=== PATIENT | male | born 1960 | race Caucasian/White ===

== ENCOUNTER 2018-01-16 16:20 | Inpatient (IN) | payer OTHER ==
[~2018-01-16] VITALS: Ht 182.9 cm; Wt 100.2 kg
[~2018-01-16 16:20] MED LIST: AMOXICILLIN500 MG PO; FENOFIBRATE145 MG PO; HYDROCODON-ACE1 EA15 PO; METFORMIN HCL500 MG PO; VASOTEC5 MG PO
[2018-01-16 17:08] LABS: BASOPHILS # (AUTO) 0.1 (0.0-0.1); BASOPHILS % 0.5 % (0.0-1.0); EOSINOPHILS # (AUTO) 0.4 (0.0-0.4); EOSINOPHILS % 3.1 % (0.0-6.0); HEMOGLOBIN 14.2 g/dL (14.0-18.0); LYMPHOCYTES # (AUTO) 2.2 (1.0-3.2); MEAN CORPUSCULAR HGB CONC 35.5 g/dL (31-35); MEAN CORPUSCULAR VOLUME 87.3 fL (81-99); MONOCYTES # (AUTO) 1.1 (0.2-0.8); MONOCYTES % 8.1 % (4.4-11.3); NEUTROPHILS % 71.7 % (38.7-80.0); PLATELET COUNT 200 x10e3/uL (140-360); RED BLOOD COUNT 4.58 x10e6/uL (4.3-5.7); RED CELL DISTRIBUTION WIDTH 13.1 % (11.7-14.4)
[2018-01-16 17:27] LABS: ALANINE AMINOTRANSFERASE 25 IU/L (0-55); ALBUMIN 3.2 g/dL (3.5-5.0); ALBUMIN/GLOBULIN RATIO 0.9 (0.8-2.0); ALKALINE PHOSPHATASE 88 IU/L (40-150); ANION GAP 13.8 mmol/L (8-16); BLOOD UREA NITROGEN 18 mg/dL (7-26); BUN/CREATININE RATIO 15 (6-25); CALCIUM 9.2 mg/dL (8.4-10.2); CARBON DIOXIDE 22 mmol/L (22-29); CHLORIDE 105 mmol/L (98-107); CREATININE, SERUM 1.17 mg/dL (0.72-1.25); EST GLOMERULAR FILTRATION RATE > 60 ML/MIN (60-); GLUCOSE 167 mg/dL (74-118); POTASSIUM 3.8 mmol/L (3.5-5.1); SODIUM 137 mmol/L (136-145)
[2018-01-16] MEDS ORDERED: LIDOCAINE 1% 5ML-MPF INJ ONE (17:30)
[2018-01-16] MEDS ORDERED: ONDANSETRON HCL INJ 2 MG/ML VIAL IV STA (17:31)
[2018-01-16] MEDS ORDERED: HYDROMORPHONE 1MG/1ML INJ IV STA (17:31)
[2018-01-16] MEDS ORDERED: HYDROMORPHONE 1MG/1ML INJ IV PRN (18:45)
[2018-01-16] MEDS ORDERED: ONDANSETRON HCL INJ 2 MG/ML VIAL IV PRN (18:45)
[2018-01-16] MEDS ORDERED: DEXTROSE 50% SYRINGE 50 ML IV PRN (18:45)
--- NOTE | 2018-01-16 19:13 | History and Physical ---
CLINICAL HISTORY: This is a 58-year-old man seen in the emergency room at [facility] because of right groin abscess. This patient apparently has had right groin problems for approximately a week. He noticed it 5 days ago and thinks this appears to have worsened in the past few days. He went to see Dr. Smith today and was very treated with antibiotics but referred to the emergency room where an abscess was found and had to be drained. He is being admitted for intravenous antibiotics. PAST MEDICAL HISTORY: Remarkable for diabetes, hypertension. MEDICATIONS: At home include losartan 100 mg per day, metformin 500 mg p.o. b.i.d. He is taking an unknown medication, presumably fenofibrate for hypertriglyceridemia. PAST SURGERIES: None. FAMILY HISTORY: Father had coronary artery disease, bypass surgery, diabetes, lived to his 80s. Mother had myocardial infarction in her 80s. He has no brothers or sisters. PERSONAL AND SOCIAL HISTORY: He smoked since age 23. Denies drinking. 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 REVIEW OF SYSTEMS: Noncontributory. PHYSICAL EXAMINATION: GENERAL: He is alert, coherent, appears to be comfortable. CARDIOVASCULAR: Jugular veins are not distended. S1 and S2 are regular. There is no appreciable murmur. RESPIRATORY: Clear. ABDOMEN: Soft. Bowel sounds are present. EXTREMITIES: Show no cyanosis, clubbing, edema. The right groin shows drainage and cellulitis into the right scrotum. LABORATORY STUDIES: Electrolytes were normal. Glucose 167 Albumin 3.2. White count of 13,900. IMPRESSION: 1. Right groin abscess drained in the emergency room but may require further drainage with cellulitis radiating to the right scrotum. 2. Diabetes. 3. Hypertension. 4. Hypertriglyceridemia. RECOMMENDATIONS: Intravenous antibiotics, infectious disease consultation, surgical consultation, urology consultation. Job#: [id number] EV cc:FANNIE SMITH MD cc:JACOBO GREGORY MD
[2018-01-16] MEDS: SODIUM CHLORIDE 0.9% 1000ML 1,000 ML IV SCH (19:22)
[2018-01-16] MEDS: HYDROCODONE/APAP 7.5MG-325MG 1 EA TAB PO SCH (19:22)
[2018-01-16] MEDS: INSULIN LISPRO 100 UNIT/1 ML 3ML VIAL SQ SCH (21:00)
[2018-01-16 21:40] VITALS: BP 152/88
[2018-01-16] MEDS: VANCOMYCIN 1GM/NS 250 ML 250 ML IV SCH (22:15)
[2018-01-16 22:47] VITALS: BP 152/88
[2018-01-16] MEDS ORDERED: LOVASTATIN40 MG PO (23:28)
[2018-01-16] MEDS ORDERED: LOSARTAN POTAS100 MG PO (23:28)
[2018-01-17] VITALS (8 sets, daily range): BP systolic 119–145; BP diastolic 71–87
[2018-01-17] MEDS: PIPER-TAZ 3.375 GM 50 ML IV SCH ×4 (00:45→17:32)
[2018-01-17] MEDS: SODIUM CHLORIDE 0.9% 1000ML 1,000 ML IV SCH ×3 (02:43→17:33)
[2018-01-17 04:36] LABS: BASOPHILS # (AUTO) 0.1 (0.0-0.1); BASOPHILS % 0.5 % (0.0-1.0); EOSINOPHILS # (AUTO) 0.5 (0.0-0.4); EOSINOPHILS % 3.9 % (0.0-6.0); HEMATOCRIT 37.6 % (38.2-49.6); LYMPHOCYTES # (AUTO) 2.6 (1.0-3.2); LYMPHOCYTES % 20.9 % (18.0-39.1); MEAN CORPUSCULAR HEMOGLOBIN 30.4 pg (28-32); MEAN CORPUSCULAR HGB CONC 34.6 g/dL (31-35); MEAN CORPUSCULAR VOLUME 87.9 fL (81-99); MONOCYTES % 7.8 % (4.4-11.3); NEUTROPHILS # (AUTO) 8.3 (2.1-6.9); NEUTROPHILS % 66.1 % (38.7-80.0); PLATELET COUNT 206 x10e3/uL (140-360); RED BLOOD COUNT 4.28 x10e6/uL (4.3-5.7); RED CELL DISTRIBUTION WIDTH 13.2 % (11.7-14.4)
[2018-01-17 04:53] LABS: ANION GAP 13.7 mmol/L (8-16); BLOOD UREA NITROGEN 17 mg/dL (7-26); BUN/CREATININE RATIO 17 (6-25); CALCIUM 8.7 mg/dL (8.4-10.2); CARBON DIOXIDE 22 mmol/L (22-29); CHLORIDE 105 mmol/L (98-107); CREATININE, SERUM 1.02 mg/dL (0.72-1.25); EST GLOMERULAR FILTRATION RATE > 60 ML/MIN (60-); GLUCOSE 124 mg/dL (74-118); POTASSIUM 3.7 mmol/L (3.5-5.1); SODIUM 137 mmol/L (136-145)
[2018-01-17] MEDS: HYDROCODONE/APAP 7.5MG-325MG 1 EA TAB PO SCH ×4 (06:14→17:32)
[2018-01-17] MEDS: INSULIN LISPRO 100 UNIT/1 ML 3ML VIAL SQ SCH ×4 (07:30→21:00)
[2018-01-17] MEDS: LOSARTAN POTASSIUM 100 MG TAB PO SCH (08:18)
[2018-01-17] MEDS: VANCOMYCIN 1GM/NS 250 ML 250 ML IV SCH ×2 (08:18→22:54)
[2018-01-17] MEDS: METFORMIN HCL 500 MG TAB PO SCH (08:19)
[2018-01-17] MEDS ORDERED: FENOFIBRATE 145 MG TAB PO SCH (09:00)
--- NOTE | 2018-01-17 17:54 | Consultation ---
DATE OF CONSULTATION: January 17, 2018 ATTENDING PHYSICIAN: Dr. Tyson Bateman. REASON FOR CONSULTATION: Groin infection. Thank you Dr. Bateman for asking me to see this patient. HISTORY: The patient is a 58-year-old man referred for groin infection. He presented to the emergency department with painful right groin boil. He noted a small painful pimple of the right groin about 2 days earlier and applied iodine ointment to it. Unfortunately, the lesion grew bigger and more painful especially when walking. He was evaluated by the primary care provider yesterday and treated with intramuscular injection of antibiotic and sent to the emergency room for further evaluation or management. In the emergency room, he was noted to have temperature of 101.1 degrees Fahrenheit, pulse 95, respiratory rate 20, blood pressure 129/91. Initial laboratory studies showed blood leukocyte count of 13,910 with 71.7% neutrophils and blood glucose 167. Patient underwent incision and drainage in the emergency room. PAST MEDICAL HISTORY: Diabetes mellitus type 2, hypertension and hypertriglyceridemia. PAST SURGICAL HISTORY: I and D of prior abscesses. ALLERGIES: FENOFIBRATE. MEDICATIONS: The current antibiotics are Zosyn 3.375 grams IV piggyback q.6 hours and vancomycin 1 gram IV piggyback q.12 hours. FAMILY HISTORY: The parents had coronary artery disease. SOCIAL HISTORY: He smoked a pack of cigarettes a day and has been doing so for many years. He has alcohol use. REVIEW OF SYSTEMS: As per history of present illness. The fever subsided. He denies cough, shortness of breath, nausea, vomiting, diarrhea, dysuria and abdominal pain. PHYSICAL EXAMINATION GENERAL: No acute distress. VITAL SIGNS: T-max 101.1, TC 97.2, pulse 54, respiratory rate 18, blood pressure 119/71. Weight 223 pounds. HEENT: Normocephalic. There is no icterus or injection of conjunctivae. There is no ear or nasal discharge. Moist oral mucosa. No pharyngeal erythema or exudate. NECK: Supple. No lymphadenopathy or meningismus. LUNGS: Clear to auscultation bilaterally. HEART: Normal S1 and S2. Bradycardia. ABDOMEN: Normal bowel sounds in all quadrants. Soft and nontender. There is swelling, induration and erythema of the right groin with incision packed with drain. There is tenderness to palpation on the right inguinal area. EXTREMITIES: There is no edema, clubbing or cyanosis. The dorsalis pedis and posterior tibial pulses are palpable in both feet. SKIN: Right groin lesion as described above. FUR BUYER: Awake, alert and oriented to person, place and time. There is normal sensation on monofilament examination of the feet bilaterally. Nonfocal. LABORATORY AND DIAGNOSTICS: WBC 12,560, hemoglobin 13, platelets 206,000, neutrophils 66.1, lymph 20.9, monos 7.8, eosinophil 3.9 and basophils 0.5. BUN 17, creatinine 1.02, blood glucose 139. Blood culture is pending: Abscess culture cannot be located. IMPRESSION 1. Right groin abscess, status post incision and drainage. 2. Diabetes mellitus type 2 control. 3. Tobacco use disorder. PLAN 1. Check wound culture as well as blood culture results. 2. Continue current antibiotics. 3. Smoking cessation counseling has been provided to the patient. Currently, he declined pharmacologic intervention. Job#: [id number] BRIANNA
[2018-01-18] VITALS (7 sets, daily range): BP systolic 116–145; BP diastolic 65–88
[2018-01-18] MEDS: PIPER-TAZ 3.375 GM 50 ML IV SCH ×5 (00:37→23:15)
[2018-01-18] MEDS: HYDROCODONE/APAP 7.5MG-325MG 1 EA TAB PO SCH ×4 (05:16→18:00)
[2018-01-18] MEDS: SODIUM CHLORIDE 0.9% 1000ML 1,000 ML IV SCH ×2 (05:16→10:43)
[2018-01-18] MEDS: INSULIN LISPRO 100 UNIT/1 ML 3ML VIAL SQ SCH ×5 (07:30→20:43)
[2018-01-18] MEDS: VANCOMYCIN 1GM/NS 250 ML 250 ML IV SCH ×2 (09:15→20:43)
[2018-01-18] MEDS: LOSARTAN POTASSIUM 100 MG TAB PO SCH (09:15)
[2018-01-18] MEDS: METFORMIN HCL 500 MG TAB PO SCH (09:15)
[2018-01-19 00:17] VITALS: BP 127/69
[2018-01-19] MEDS: SODIUM CHLORIDE 0.9% 1000ML 1,000 ML IV SCH ×3 (01:53→10:43)
[2018-01-19 04:47] VITALS: BP 127/69
[2018-01-19 05:14] VITALS: BP 153/77
[2018-01-19] MEDS: PIPER-TAZ 3.375 GM 50 ML IV SCH ×2 (05:55→12:23)
[2018-01-19] MEDS: HYDROCODONE/APAP 7.5MG-325MG 1 EA TAB PO SCH ×3 (05:55→12:00)
[2018-01-19] MEDS: INSULIN LISPRO 100 UNIT/1 ML 3ML VIAL SQ SCH ×3 (07:30→15:45)
[2018-01-19 08:41] VITALS: BP 145/82
[2018-01-19] MEDS: METFORMIN HCL 500 MG TAB PO SCH (09:37)
[2018-01-19] MEDS: VANCOMYCIN 1GM/NS 250 ML 250 ML IV SCH (09:37)
[2018-01-19] MEDS: LOSARTAN POTASSIUM 100 MG TAB PO SCH (09:37)
[2018-01-19 11:34] VITALS: BP 165/91
[2018-01-19 12:00] VITALS: BP 165/91
[2018-01-19] MEDS ORDERED: AMOX TR-K CLV1 EAC2 PO (16:08)
[2018-01-20] MEDS ORDERED: METFORMIN HCL 500 MG TAB PO SCH (08:00)
--- NOTE | 2018-01-20 10:16 | Discharge Summary ---
DISCHARGE MEDICATION 1. Amoxicillin/potassium 75 mg/125 mg p.o. b.i.d. for 10 days. 2. Losartan 100 mg p.o. daily. 3. Atorvastatin 40 mg daily. 4. Metformin 50 mg p.o. daily. CLINICAL HISTORY: This is a 58-year-old man admitted via the emergency room because of right groin abscess. Please refer to my previous dictation concerning details of current illness, past medical history, personal and social history, family history, review of systems, physical examination, and initial laboratory studies. HOSPITAL COURSE: The patient abscess was immediately opened and drained. He was admitted for intravenous antibiotics. Was seen in consultation by Dr. Ravin Champion, general surgery and Dr. Joshua Florez, infectious disease. He did extremely well and had no complications. Anxious to be discharged. His cultures finally returned showing it was pansensitive. The patient is discharged on amoxicillin TR-K CLV 875 per 125 mg p.o. b.i.d. for 7-10 days. Other medications are the same. DISCHARGE DIAGNOSES 1. Right groin abscess successfully treated with intravenous and oral antibiotics with cultures showing Proteus pansensitive. 2. Diabetes. 3. Hypertension. 4. Hypertriglyceridemia. SANTI RIVAS MD Job#: [id number] RI cc:MD RAVIN NEIL MD MAURICE E. AKUCHIE, MD
== END 2018-01-19 17:45 | disposition home or self-care (01) | DRG 989 ==
LOC: ER 16:20 → ERHOLD 19:27 → IMCU 21:36 → OBSVTOIN 01-18 10:52 → MED/SURG3 01-18 17:27
PROVIDERS: ADMIT Internal Medicine Cardiovascular Disease; ATTEND Internal Medicine Cardiovascular Disease
PROC: 0Y950ZX Drainage of Right Inguinal Region, Open Approach, Diagnostic (ICD-10-PCS; principal; 2018-01-16)
DX: L02.214 Cutaneous abscess of groin (principal); N49.8 Inflammatory disorders of other specified male genital organs; E11.9 Type 2 diabetes mellitus without complications; I10 Essential (primary) hypertension; E78.1 Pure hyperglyceridemia; Z72.0 Tobacco use; B96.4 Proteus (mirabilis) (morganii) as the cause of diseases classified elsewhere
CPT/HCPCS: 36415; 80048; 80053; 82948; 83605; 85025; 87040; 87071; 87186; 87205; 99284; G0378; J1170; J2405; J2543; J3370; J7030

== ENCOUNTER 2019-11-01 13:51 | Inpatient (IN) | payer OTHER ==
[~2019-11-01] VITALS: Ht 182.9 cm; Wt 107.5 kg
[~2019-11-01 13:51] MED LIST changes: +AMOX TR-K CLV1 EAC2 PO; +LOSARTAN POTAS100 MG PO; +LOVASTATIN40 MG PO
--- OUTSIDE RECORDS SUMMARY | 2019-11-01 13:53 | XMS REPORT ---
Author Author [facility] t Organization [facility] Address Unknown Phone Unavailable Care Team Providers Care Fashion Marketer Name Role Phone QUYNH THEODORE, [place] GRECO PP Payers Payer Name Policy Type Policy Number Effective Date Expiration D ate [facility] [id number] 2015 00:00:00 Problems This patient has no known problems. Allergies, Adverse Reactions, Alerts Allergy Name Allergy Type Status Severity Reaction(s) Onset Date Inacti ve Date Treating Clinician Comments Fenofibrate Propensity to adverse reactions Active Moderate coretta h 2018-01-17 00:00:00 Medications Ordered Medication Name Filled Medication Name Start Date Stop Da te Current Medication? Ordering Clinician Indication Dosage Frequency Signature (SIG) Comments Components Amoxicillin/Potassium Clav (Amox Tr-K Clv 875-125 Mg T ab) 1 Each Tablet Amoxicillin/Potassium Clav (Amox Tr-K Clv 875-125 Mg Tab) 1 Each Tablet 2018-01-19 00:00:00 2018-01-29 00:00:00 No Joshua Florez Md 1 Twice A Day Losartan Potassium 100 Mg Tablet Losartan Potassium 100 Mg Tablet Yes 100 Daily Lovastatin 40 Mg Tablet Lovastatin 40 Mg Tablet Yes 40 Bedtime Metformin Hcl 500 Mg Tablet Metformin Hcl 500 Mg Tablet Yes 500 Daily Amoxicillin 500 Mg Capsule, 500 Mg Oral Amoxicillin 500 Mg C apsule, 500 Mg Oral 2018-01-16 00:00:00 No 500 Four Times D aily Enalapril Maleate (Vasotec) 5 Mg Tab, 5 Mg Oral Enalap ril Maleate (Vasotec) 5 Mg Tab, 5 Mg Oral 2018-01-16 00:00:00 No 5 Sylvie ly Fenofibrate Nanocrystallized (Fenofibrate) 145 Mg Tabl et, 145 Mg Oral Fenofibrate Nanocrystallized (Fenofibrate) 145 Mg Tablet, 145 Mg Oral 2018-01-16 00:00:00 No 145 Bedtime Hydrocodone Bit/Acetaminophen (Hydrocodo n-Acetaminoph 7.5-300) 1 Each Tablet, 7.5 Mg Oral Hydrocodone Bit/Acetaminophen (Hydrocodo n-Acetaminoph 7.5-300) 1 Each Tablet, 7.5 Mg Oral 2018-01-16 00:00:00 No 7.5 Every 6HRS Encounters Start Date/Time End Date/Time [facility] 2018-01-18 10:52:00 2018-01-19 17:45:00 Discharged Inpatient [facility] [id number] Results Test Description Test Time Test Comments Text Results Atomic Results Result Comments Blood Culture 2018-01-19 17:03:00 Blood Culture (test code = 25381160) NO GROWTH AFTER 72 HOURS Bedside [id number] 16:53:00* Test Item Value Reference Range Comments Bedside Glucose (test code = 92583-2) 97 70-120 Meter ID: [id number] 06:22:00* Test Item Value Reference Range Comments Wound Culture (test code = 6462-6) Organism: PROTEUS MIRABILIS Sodium [id number] 04:54:00* Test Item Value Reference Range Comments Sodium Level (test code = 2951-2) 137 136-145 Potassium [id number] 04:54:00* Test Item Value Reference Range Comments Potassium Level (test code = 2823-3) 3.7 3.5-5.1 Chloride [id number] 04:54:00* Test Item Value Reference Range Comments Chloride Level (test code = 5-0) 105 98-107 Carbon Dioxide Hozlc5482-25-22 04:54:00* Test Item Value Reference Range Comments Carbon Dioxide Level (test code = 2027-) 22 22-29 Anion [id number] 04:54:00* Test Item Value Reference Range Comments Anion Gap (test code = 06221-0) 13.7 8-16 Blood Urea Ykoolcwv9432-83-90 04:54:00* Test Item Value Reference Range Comments Blood Urea Nitrogen (test code = 3094-0) 17 7-26 Nxaticjsap6564-68-05 04:54:00* Test Item Value Reference Range Comments Creatinine (test code = 2160-0) 1.02 0.72-1.25 BUN/Creatinine Jvull1696-97-92 04:54:00* Test Item Value Reference Range Comments BUN/Creatinine Ratio (test code = 3097-3) 17 6-25 Estimat Glomerular Filtration Qjlc2977-51-60 04:54:00* Test Item Value Reference Range Comments Estimat Glomerular Filtration Rate (test code = 92915-9) 60- >60 Ranges were taken from the National Kidney Disease Education Program and the [facility] Kidney Foundation literature.Reference ranges:60 or greater: Gdfegs97-99 ( for 3 consecutive months): Chronic kidney disease 15 or less: Kidney failure Glucose Serdr8090-35-52 04:54:00* Test Item Value Reference Range Comments Glucose Level (test code = LDK5030) 124 74-118 Calcium Kyghf7044-13-03 04:54:00* Test Item Value Reference Range Comments Calcium Level (test code = 83646-3) 8.7 8.4-10.2 White Blood Iqqqp9192-16-75 04:40:00* Test Item Value Reference Range Comments White Blood Count (test code = 6690-2) 12.56 4.8-10.8 Red Blood Zpgob3641-39-48 04:40:00* Test Item Value Reference Range Comments Red Blood Count (test code = 789-8) 4.28 4.3-5.7 Uvxjtlnvcf0565-06-36 04:40:00* Test Item Value Reference Range Comments Hemoglobin (test code = 36177-4) 13.0 14.0-18.0 Ixrmoloyij7115-39-71 04:40:00* Test Item Value Reference Range Comments Hematocrit (test code = 4544-3) 37.6 38.2-49.6 Mean Corpuscular Yabuzj9267-47-07 04:40:00* Test Item Value Reference Range Comments Mean Corpuscular Volume (test code = 787-2) 87.9 81-9 9 Mean Corpuscular Qtlldhhfub6563-92-28 04:40:00* Test Item Value Reference Range Comments Mean Corpuscular Hemoglobin (test code = 785-6) 30.4 28-32 Mean Corpuscular Hemoglobin Tilckou4894-37-14 04:40:00* Test Item Value Reference Range Comments Mean Corpuscular Hemoglobin Concent (test code = 786-4) 34.6 31-35 Red Cell Distribution Gwijs2870-55-53 04:40:00* Test Item Value Reference Range Comments Red Cell Distribution Width (test code = 67064-3) 13.2 11.7-14.4 Platelet Nxaag9409-67-82 04:40:00* Test Item Value Reference Range Comments Platelet Count (test code = 777-3) 206 140-360 Neutrophils (%) (Auto)2018-01-17 04:40:00* Test Item Value Reference Range Comments Neutrophils (%) (Auto) (test code = 15706-2) 66.1 38. 7-80.0 Lymphocytes (%) (Auto)2018-01-17 04:40:00* Test Item Value Reference Range Comments Lymphocytes (%) (Auto) (test code = 736-9) 20.9 18.0- 39.1 Monocytes (%) (Auto)2018-01-17 04:40:00* Test Item Value Reference Range Comments Monocytes (%) (Auto) (test code = 5905-5) 7.8 4.4-11 .3 Eosinophils (%) (Auto)2018-01-17 04:40:00* Test Item Value Reference Range Comments Eosinophils (%) (Auto) (test code = 713-8) 3.9 0.0-6 .0 Basophils (%) (Auto)2018-01-17 04:40:00* Test Item Value Reference Range Comments Basophils (%) (Auto) (test code = 706-2) 0.5 0.0-1.0 IM GRANULOCYTES %2018-01-17 04:40:00* Test Item Value Reference Range Comments IM GRANULOCYTES % (test code = IM GRANULOCYTES %) 0.8 0.0-1.0 Neutrophils # (Auto)2018-01-17 04:40:00* Test Item Value Reference Range Comments Neutrophils # (Auto) (test code = 751-8) 8.3 2.1-6.9 Lymphocytes # (Auto)2018-01-17 04:40:00* Test Item Value Reference Range Comments Lymphocytes # (Auto) (test code = 67273-9) 2.6 1.0-3 .2 Monocytes # (Auto)2018-01-17 04:40:00* Test Item Value Reference Range Comments Monocytes # (Auto) (test code = 742-7) 1.0 0.2-0.8 Eosinophils # (Auto)2018-01-17 04:40:00* Test Item Value Reference Range Comments Eosinophils # (Auto) (test code = 711-2) 0.5 0.0-0.4 Basophils # (Auto)2018-01-17 04:40:00* Test Item Value Reference Range Comments Basophils # (Auto) (test code = 704-7) 0.1 0.0-0.1 Absolute Immature Granulocyte (xvog0489-09-03 04:40:00* Test Item Value Reference Range Comments Absolute Immature Granulocyte (auto (stan t code = Absolute Immature Granulocyte (auto) 0.10 0-0.1 Total Skavjgxta0497-69-29 17:28:00* Test Item Value Reference Range Comments Total Bilirubin (test code = 1975-2) 0.5 0.2-1.2 Aspartate Amino Transf (AST/SGOT)2018-01-16 17:28:00* Test Item Value Reference Range Comments Aspartate Amino Transf (AST/SGOT) (test code = Aspartate Amino Transf (AST/SGOT)) 17 5-34 Alanine Aminotransferase (ALT/SGPT)2018-01-16 17:28:00* Test Item Value Reference Range Comments Alanine Aminotransferase (ALT/SGPT) (test code = 1742-6) 25 0-55 Total Hjteazh7555-80-69 17:28:00* Test Item Value Reference Range Comments Total Protein (test code = 2885-2) 6.8 6.5-8.1 Mfjljdc9357-60-70 17:28:00* Test Item Value Reference Range Comments Albumin (test code = 1751-7) 3.2 3.5-5.0 Hbukbqvs0102-74-31 17:28:00* Test Item Value Reference Range Comments Globulin (test code = 53091-2) 3.6 2.3-3.5 Albumin/Globulin Fhjpt7055-07-34 17:28:00* Test Item Value Reference Range Comments Albumin/Globulin Ratio (test code = 1759-0) 0.9 0.8- 2.0 Alkaline Tyqueexkoop8239-90-20 17:28:00* Test Item Value Reference Range Comments Alkaline Phosphatase (test code = 6768-6) 88 40-150 Lactic Acid Ntwrm7940-96-96 17:23:00* Test Item Value Reference Range Comments Lactic Acid Level (test code = Lactic Acid Level) 9.1 4.5-19.8
[2019-11-01] MEDS ORDERED: ASPIRIN 81 MG CHEW TAB PO ONE ×2 (14:00→14:15)
[2019-11-01 14:11] LABS: BASOPHILS # (AUTO) 0.1 (0.0-0.1); BASOPHILS % 0.6 % (0.0-1.0); EOSINOPHILS # (AUTO) 0.3 (0.0-0.4); EOSINOPHILS % 2.1 % (0.0-6.0); HEMATOCRIT 43.3 % (38.2-49.6); HEMOGLOBIN 15.1 g/dL (14.0-18.0); LYMPHOCYTES # (AUTO) 4.6 (1.0-3.2); LYMPHOCYTES % 33.2 % (18.0-39.1); MEAN CORPUSCULAR HGB CONC 34.9 g/dL (31-35); MEAN CORPUSCULAR VOLUME 88.9 fL (81-99); MONOCYTES # (AUTO) 0.9 (0.2-0.8); MONOCYTES % 6.2 % (4.4-11.3); NEUTROPHILS # (AUTO) 7.8 (2.1-6.9); NEUTROPHILS % 55.9 % (38.7-80.0); PLATELET COUNT 236 x10e3/uL (140-360); RED BLOOD COUNT 4.87 x10e6/uL (4.3-5.7); RED CELL DISTRIBUTION WIDTH 13.4 % (11.7-14.4)
[2019-11-01 14:21] LABS: INR 0.98; PARTIAL THROMBOPLASTIN TIME 32.8 seconds (23.8-35.5); PROTHROMBIN TIME 13.6 seconds (11.9-14.5)
[2019-11-01 14:29] LABS: ALANINE AMINOTRANSFERASE 33 IU/L (0-55); ALBUMIN 3.9 g/dL (3.5-5.0); ALBUMIN/GLOBULIN RATIO 1.4 (0.8-2.0); ALKALINE PHOSPHATASE 79 IU/L (40-150); ANION GAP 13.1 mmol/L (8-16); BLOOD UREA NITROGEN 31 mg/dL (7-26); BUN/CREATININE RATIO 27 (6-25); CALCIUM 9.2 mg/dL (8.4-10.2); CARBON DIOXIDE 22 mmol/L (22-29); CHLORIDE 108 mmol/L (98-107); CREATINE KINASE 194 IU/L (30-200); CREATININE, SERUM 1.15 mg/dL (0.72-1.25); EST GLOMERULAR FILTRATION RATE > 60 ML/MIN (60-); GLUCOSE 167 mg/dL (74-118); LIPASE 37 U/L (8-78); POTASSIUM 4.1 mmol/L (3.5-5.1); SODIUM 139 mmol/L (136-145)
--- NOTE | 2019-11-01 15:39 | Diagnostic Imaging Report ---
X-ray chest AP portable Comparison: None History: Chest pain for 2 days Findings: AP lordotic view. Central airways unremarkable. Heart size normal. Atherosclerotic aorta without ectasia. The mediastinal contour is unremarkable. No pleural effusion. No pneumothorax. Lung cramer are unremarkable. Visualized skeletal structures show degenerative changes. Upper abdomen and extrathoracic soft tissues unremarkable. Impression: No acute cardiopulmonary disease. Signed by: Madi Aguilera MD on 11/01/2019 3:35 PM
--- NOTE | 2019-11-01 15:50 | NUR ---
received to rm in stable condition, aaox3 no distress noted, denies chest pain at this time, r ac 20g no ss of infiltration noted, updated on poc voiced understanding, no other co voiced call light in reach will continue to monitor
[2019-11-01 16:26] VITALS: BP 140/91
[2019-11-01 16:31] VITALS: BP 140/91
--- NOTE | 2019-11-01 16:37 | NUR ---
notified Dr. Adhikari re: admit, states will round soon
[2019-11-01] MEDS ORDERED: METOPROLOL TARTRATE 25 MG TAB PO SCH (18:45)
[2019-11-01 19:00] LABS: CREATINE KINASE MB 6.5 ng/mL (0-5.0)
[2019-11-01] MEDS ORDERED: DEXTROSE 50% SYRINGE 50 ML IV PRN (19:00)
[2019-11-01 20:00] VITALS: BP 141/70
[2019-11-01] MEDS: ENOXAPARIN SODIUM INJ 100 MG/ML SYR SC SCH (20:00)
[2019-11-01] MEDS: METOPROLOL TARTRATE 25 MG TAB PO SCH (20:04)
[2019-11-01] MEDS: INSULIN REGULAR, HUMAN 100 UNIT/1 ML 3ML VIAL SQ SCH (20:05)
--- NOTE | 2019-11-01 20:17 | History and Physical ---
CHIEF COMPLAINT: Chest pain. HISTORY OF PRESENT ILLNESS: A 59-year-old gentleman who was seen by his primary care physician, Dr. Smith at his office early in the morning for evaluation of chest pain, which has been localized in the substernal area, and the pain has been presented intermittently during the last 2 days or so. The patient denies nausea. No vomiting. No diaphoresis. No shortness of breath. No fever. No chills. The patient was advised hospitalization in view of ongoing chest pain and did have EKG performed and was told to have some abnormalities. The patient was quite comfortable at the time of my evaluation. PAST MEDICAL HISTORY: He has a history of diabetes mellitus, hypertension, and hyperlipidemia. Denies myocardial infarction. No CVA. FAMILY HISTORY: Family history of CVA and coronary artery disease. SOCIAL HISTORY: History of smoking. No alcohol abuse. ALLERGIES: ALLERGY TO FENOFIBRATE. MEDICATIONS: At the time of admission, list of medications reviewed. REVIEW OF SYSTEMS: CONSTITUTIONAL: No fever. No chills. CARDIOVASCULAR: See present history, complaints of chest pain. No palpitations. No swelling in the legs. No blackout spells. RESPIRATORY: No cough. No hemoptysis. No shortness of breath. GI: No nausea, vomiting, or diarrhea. No hematemesis or melena. GENITOURINARY: No dysuria, hematuria, or frequency. NEUROLOGIC: No focal weakness. PHYSICAL EXAMINATION: GENERAL: Revealed the patient is alert and oriented to person, time, and place. The patient was in no distress at the time of my evaluation. VITAL SIGNS: At the time of the arrival to the ER department, blood pressure 145/91, heart rate 83, respirations 18, temperature 98.4, O2 saturation 98% on room air. HEENT: Head is normocephalic and atraumatic. Extraocular movements are intact. NECK: Supple. No JVD. Thyroid gland was not enlarged. LUNGS: Clear to auscultation. HEART: Regular rate and rhythm. No murmurs, rubs, or gallops. ABDOMEN: Soft, nontender. Bowel sounds are normal. EXTREMITIES: No edema. NEUROLOGIC: Alert and oriented x3. No focal weakness. IMAGING: EKG revealed no acute ischemia, rate 74, normal P waves, normal QRS complex, normal axis, normal QT. ST depression noted in leads III and aVF. LABORATORY DATA: CBC was normal except white blood cell count 13.98. Basic metabolic profile revealed glucose 167, BUN 31. Cardiac enzymes so far negative. ASSESSMENT: 1. Chest pain-rule out acute coronary syndrome. 2. History of hypertension. 3. History of hyperlipidemia. 4. Diabetes mellitus type 2. PLAN OF CARE: Serial cardiac enzymes and consult Cardiology. Beta blockers Lovenox Aspirin Reconcile home medications. MD BASILIA Rebolledo/MELIDA /[id number] MTDD
[2019-11-01 20:19] VITALS: BP 141/70
[2019-11-01 21:22] LABS: EOSINOPHILS % (MANUAL) 1 % (0-7); LYMPHOCYTES % (MANUAL) 30 % (19-48); MONOCYTES % (MANUAL) 5 % (3.4-9.0); NEUTROPHILS % (MANUAL) 51 % (40-74)
[2019-11-01 21:23] LABS: ANISOCYTOSIS SLIGHT; PLATELET ESTIMATE ADEQUATE; PLATELET MORPHOLOGY COMMENT NORMAL; POIKILOCYTOSIS SLIGHT; RBC MORPHOLOGY COMMENT NORMAL
[2019-11-01 23:40] LABS: CREATINE KINASE MB 5.5 ng/mL (0-5.0)
[2019-11-02] VITALS (8 sets, daily range): BP systolic 126–157; BP diastolic 78–86
[2019-11-02 03:10] LABS: CHOLESTEROL 161 MD/DL (0-199); HDL CHOLESTEROL 27 MG/DL (40-60); TRIGLYCERIDES 456 MG/DL (0-149)
[2019-11-02 03:20] LABS: CREATINE KINASE MB 4.6 ng/mL (0-5.0)
--- NOTE | 2019-11-02 07:00 | NUR ---
BEDSIDE SHIFT REPORT RECEIVED FROM PM NURSE; PT AMBULATING TO BR, IN STABLE CONDITION. WILL CONTINUE TO MONITOR.
[2019-11-02] MEDS: INSULIN REGULAR, HUMAN 100 UNIT/1 ML 3ML VIAL SQ SCH ×4 (07:30→20:34)
[2019-11-02] MEDS: ASPIRIN 81 MG ENTERIC COATED PO SCH (09:14)
[2019-11-02] MEDS: ENOXAPARIN SODIUM INJ 100 MG/ML SYR SC SCH (09:15)
[2019-11-02] MEDS: METOPROLOL TARTRATE 25 MG TAB PO SCH ×2 (09:15→17:23)
--- NOTE | 2019-11-02 09:30 | NUR ---
ASSESSMENT: Spiritual concern Pt worried concerning illness. Pt states he is waiting for tests to determine the source of his illness. Intervention: Provided hospitality and empathic listening. Facilitated illness review. Provided prayer. Outcome: Pt expressed appreciation for visit. Will follow as able. MISAEL ALMAZAN Set Decorator Spiritual Care Department O: [phone]
--- NOTE | 2019-11-02 11:59 | Progress Note ---
DATE: 11/02/2019 Cardiology Consultation CONSULTING PHYSICIAN: Ochoa Gallegos MD, interventional Cardiology. REASON FOR CONSULTATION: Chest pain. HISTORY OF PRESENT ILLNESS: Mr. 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 He presents to [facility] with complaints of chest discomfort, worse with exertion, particularly ambulation or lifting heavy objects. Symptoms have pattern onset in the last week and have recurred in two days with increasing intensity. He has currently no active chest discomfort. He denies radiation, but does have associated dyspnea. REVIEW OF SYSTEMS: A 12-system review is negative except for as noted above. PAST MEDICAL HISTORY: As per HPI. SOCIAL HISTORY: He is a smoker. Occasional alcohol use. Denies drug use. FAMILY HISTORY: Noncontributory. PHYSICAL EXAMINATION: VITAL SIGNS: Temperature 97.4, heart rate 60, blood pressure 128/81, respiratory rate 17, O2 saturation 97%. BMI is 32.4. GENERAL: No acute distress. Alert. NECK: No JVD. No carotid bruits. CHEST: Clear to auscultation bilaterally. CARDIOVASCULAR: Regular rate and rhythm. Normal S1 and S2. No S3 or S4. No murmurs or rubs. ABDOMEN: Soft. Bowel sounds positive. EXTREMITIES: Trace edema. MEDICATIONS: Cardiovascular medications reviewed: 1. Metoprolol 25 mg every 12 hours. 2. Aspirin 81 mg daily. 3. Lovenox 100 mg subcu q.12 hours. LABORATORY DATA: Studies reviewed. Sodium 139, potassium 4.1, chloride 108, bicarbonate 22. BUN 31, creatinine 1.15, glucose 167. White blood cells 13.9, hemoglobin 15.1, platelets 236. PT 13.6, PTT 22.8, INR 0.98. AST 22, ALT 33, alkaline phosphatase 79, total bilirubin 0.5. ASSESSMENT AND PLAN: A 59-year-old man, presents with rsg-BW-pzawqbldp myocardial infarction, diabetes mellitus type 2, hypertension, dyslipidemia, morbid obesity, mild increase in white count observed, creatinine borderline elevated. RECOMMENDATIONS: 1. IV fluids. 2. Keep n.p.o. for coronary angiography and possible intervention this p.m. Indications, alternatives, risks, and benefits have been discussed for coronary angiography and possible intervention and all questions have been addressed. The patient voices understanding and agrees to proceed. Echocardiogram is ordered and to be done today. We will hold Lovenox in preparation for coronary angiography and add atorvastatin 40 mg at bedtime. Continue rest of cardiovascular medications. Serial cardiac biomarkers have ruled them in for Tjb-WS-yquylwuct myocardial infarction with CK-MB at 5. I thank Dr. Adhikari and Dr. Morse for the opportunity to participate in the care of Mr. Guerra. Ochoa Gallegos MD AFV/MODL /[id number]
--- NOTE | 2019-11-02 16:39 | NUR ---
Subjective: Mr. Guerra is a 59-year-old male patient has been evaluated, no chest pain at the time of my visit. Review of system: Constitutional: No fever no chills HEENT: Denies headache, no ear pain, no nosebleed, no sore throat. Cardiovascular: chest pain and shortness of breath. Denies PND, swelling of the legs, palpitations or blackout spells. Respiratory: Denies cough, hemoptysis. Gastrointestinal: Denies nausea, vomiting, diarrhea, hematemesis or melena. Genitourinary: Denies hematuria, frequency or dysuria. Neurologic: Denies convulsive disorders, no focal weakness, no ataxia. Psych: Denies anxiety or depression Skin: No rash. Hematological system: Denies bleeding, no petechia. Musculoskeletal: No significant deformity or swelling of the joints. Objective: Vital signs: Blood pressure: 126/81; HR: 60; RR: 17; temperature: 97.4; O2 sat: 99% Physical exam: Constitutional: He is oriented to person, place, and time. He appears well-developed. HEENT: Head: Normocephalic and atraumatic. PERRLA. Cardiovascular: Regular rhythm, no murmurs, no rubs, no gallops. Pulmonary/Chest: Clear bilaterally, no rales, no rhonchi. Abdominal: Soft, nontender, bowel sounds positive and normal. No distention, no guarding, no rebound. Musculoskeletal: Normal range of motion. Extremities: Trace edema. No clubbing Neurological: He is alert and oriented to person, place, and time. Skin: Skin is warm and dry. Psychiatric: He has a normal mood and affect. Assessment: 1. Non-ST myocardial infarction with elevated CK-MB 2. History of hypertension. 3. History of hyperlipidemia. 4. Diabetes mellitus type 2. 5. Morbid obesity 11/02/2019 Patient has been elevated by cardiology pertaining the possibility to perform a coronary angiography and intervention, echocardiogram, hold Lovenox. Continue current management. Report any abnormality. Plan of CARE: Serial cardiac enzymes and consult Cardiology. Beta blockers Hold Lovenox Add atorvastatin as advised Aspirin IV fluids Echocardiogram Glycemic control Hypertension control
--- NOTE | 2019-11-02 19:00 | NUR ---
RECEIVED PATIENT IN BEDSIDE SHIFT REPORT. PATIENT RESTING IN BED AT THIS TIME. A&OX3. NO PAIN REPORTED. NO S&S OF DISTRESS NOTED. BED LOCKED IN LOWEST POSITION, SIDE RAILS UPX2, CALL LIGHT IN REACH.
[2019-11-02] MEDS: ATORVASTATIN 40 MG TAB PO SCH (20:34)
[2019-11-03] VITALS (8 sets, daily range): BP systolic 134–169; BP diastolic 70–96
--- NOTE | 2019-11-03 07:00 | NUR ---
RECEIVED PATIENT AWAKE AT THIS TIME. NO S/S OF DISTRESS. BED LOW, WHEELS LOCKED, SIDE RAILS X2. CALL LIGHT IN REACH WILL CONTINUE TO MONITOR PATIENT.
--- NOTE | 2019-11-03 07:09 | NUR ---
GENNARO BEAN TO GET TIME FOR HEART CATH FOR SALESPERSON BURIAL PLOTS TO CALL TEAM OUT. DAY SHIFT RN TO TAKE CALLBACK.
[2019-11-03] MEDS: INSULIN REGULAR, HUMAN 100 UNIT/1 ML 3ML VIAL SQ SCH ×4 (07:30→21:40)
[2019-11-03] MEDS: ASPIRIN 81 MG ENTERIC COATED PO SCH ×2 (08:30→10:02)
[2019-11-03] MEDS: METOPROLOL TARTRATE 25 MG TAB PO SCH ×6 (08:30→21:39)
[2019-11-03] MEDS ORDERED: ATORVASTATIN 20 MG TAB PO SCH (09:00)
--- NOTE | 2019-11-03 21:30 | NUR ---
PATIENT AOX4, NO SIGNS OF DISTRESS NOTED. PATIENT HAS RETURNED FROM SHOWER AND VOICES NO PAIN AT THIS TIME. RADIO PROGRAM DIRECTOR IS IN PLACE AND RUNNING AT SINUS RHYTHM AND PATIENT INSTRUCTED TO CALL LIGHT FOR ASSISTANCE. BED IS IN LOWEST POSITION, BOTH SIDE RAILS ARE UP, CALL LIGHT IS WITHIN EASY REACH, WILL CONTINUE TO MONITOR.
[2019-11-03] MEDS: ATORVASTATIN 40 MG TAB PO SCH (21:39)
--- NOTE | 2019-11-03 22:51 | NUR ---
Subjective: The patient was doing fine at the time of my relation. The patient was quite anxious about having cardiac catheterization. Cardiac cath could not be done in view of COVID-19 and need to perform testing before deciding to undergo investigations with cath. Objective: Patient alert oriented person time place. Patient in no distress. Vital signs: Afebrile stable vital signs. HEENT: No gross abnormalities Neck: Supple no JVD Lungs: Clear to auscultation Heart: Regular rate and rhythm, no murmurs no gallops Abdomen: Soft non tender, no guarding. Extremities: No edema Neurologic: Alert oriented 3, no focal weakness. Psychiatrist: Normal mood, normal judgment. Skin: No rashes Cardiac enzymes: Troponin I 0.580 which is elevated Glucose 189 Assessment: Non-ST segment elevation myocardial infarction Coronary disease Diabetes mellitus type 2 Hypertension Hyperlipidemia Obesity. Plan of care: Cardiology consultation requested Patient be scheduled to undergo cardiac cath on Tuesday. Continue to adjust antianginal medications.
[2019-11-04] VITALS (8 sets, daily range): BP systolic 118–167; BP diastolic 69–90
--- NOTE | 2019-11-04 01:25 | Progress Note ---
DATE: 11/03/2019 Cardiology Progress Note SUBJECTIVE: Denies any chest pain or shortness of breath. OBJECTIVE: VITAL SIGNS: Temperature 97 degrees, heart rate 75, blood pressure 169/87, respiratory rate 20, and O2 saturation 95%. GENERAL: In no acute distress, alert. NECK: No JVD. CHEST: Clear to auscultation. CARDIOVASCULAR: Regular rate and rhythm. Normal S1 and S2. No S3 or S4. ABDOMEN: Soft. Bowel sounds positive. EXTREMITIES: No cyanosis, clubbing, or edema. CARDIOVASCULAR MEDICATIONS: Aspirin 81 mg daily, metoprolol tartrate 25 mg b.i.d., and atorvastatin 80 mg at bedtime. STUDIES: Reviewed. Creatinine 1.1, potassium 4.1, glucose 167. White blood cells 13.9, platelets 236, and hemoglobin 15.1. Troponin I peak was 0.968, now trending down to 0.58. Telemetry reveals sinus rhythm. Echocardiogram reviewed preserved left ventricular systolic function, LVEF 55% to 60%, mild left ventricular hypertrophy, left atrial enlargement, [id number] aortic insufficiency, mild mitral regurgitation. Trace pulmonic and tricuspid regurgitation and trivial pericardial effusion. ASSESSMENT AND PLAN: A 59-year-old man with [id number] myocardial infarction, morbid obesity, hypertension, dyslipidemia, hypertensive heart disease, preserved left ventricular systolic function. Recommend up titrate beta-salina dose and continue rest of cardiovascular medications. No recurrent angina. We will plan on coronary angiography and possible intervention on Tuesday a.m. or sooner should clinical condition change. MD HOLLIS Ryan/MELIDA /[id number]
[2019-11-04] MEDS: METOPROLOL TARTRATE 25 MG TAB PO SCH ×3 (06:37→21:06)
--- NOTE | 2019-11-04 07:00 | NUR ---
RECEIVED PATIENT AWAKE AT THIS TIME. NO S/S OF DISTRESS. BED LOW, WHEELS LOCKED, SIDE RAILS X2. CALL LIGHT IN REACH WILL CONTINUE TO MONITOR PATIENT.
[2019-11-04] MEDS: INSULIN REGULAR, HUMAN 100 UNIT/1 ML 3ML VIAL SQ SCH ×4 (07:30→21:05)
[2019-11-04] MEDS: ASPIRIN 81 MG ENTERIC COATED PO SCH (08:23)
[2019-11-04] MEDS ORDERED: OMEPRAZOLE 20 MG CAP PO SCH (12:00)
[2019-11-04] MEDS ORDERED: ENOXAPARIN SODIUM INJ 100 MG/ML SYR SC ONE (13:30)
--- NOTE | 2019-11-04 16:32 | Progress Note ---
DATE: 11/04/2019 Cardiology Progress Note SUBJECTIVE: Denies any chest pain or shortness of breath. OBJECTIVE: VITAL SIGNS: Temperature 96.6, heart rate 65, blood pressure 137/77, respiratory rate 18, and O2 saturation 95%. GENERAL: Not in acute distress. Alert. NECK: No JVD. CHEST: Clear to auscultation. CARDIOVASCULAR: Regular rate and rhythm. Normal S1 and S2. ABDOMEN: Soft. Bowel sounds positive. EXTREMITIES: No edema. CARDIOVASCULAR MEDICATIONS: Reviewed. Atorvastatin 80 mg at bedtime, metoprolol tartrate 25 mg every 8 hour, and aspirin 81 mg daily. STUDIES: Reviewed. Creatinine 1.1 and glucose 167. White blood cells 13.9, hemoglobin 15.1, and platelets 238. INR 0.98. ASSESSMENT AND PLAN: A 59-year-old man presents with [id number] myocardial infarction, history of diabetes, hypertension, and dyslipidemia. RECOMMEND: Coronary angiography and possible intervention scheduled for tomorrow a.m. Continue rest of cardiovascular medications. Lovenox subcutaneous. MD SaucedoV/MODL /[id number]
--- NOTE | 2019-11-04 16:52 | NUR ---
11/04/2019 Subjective: Mr. Guerra is a 59 year-old gentleman who has been seen and evaluated. The patient is in no acute distress. The patient denies chest pain, nausea, vomiting, fever, chills, shortness of breath, abdominal pain, melena, diarrhea, hematuria, and frequency. Review of systems: Constitutional: No fever no chills HEENT: Denies headache, no ear pain, no nosebleed, no sore throat. Cardiovascular: Denies chest pain, PND, swelling of the legs, palpitations or blackout spells. Respiratory: Denies cough, hemoptysis or shortness of breath. Gastrointestinal: Denies nausea, vomiting, diarrhea, hematemesis or melena. Genitourinary: Denies hematuria, frequency or dysuria. Neurologic: Denies convulsive disorders, no focal weakness, no ataxia. Psych: Denies anxiety or depression Skin: No rash. Hematological system: Denies bleeding, no petechia. Musculoskeletal: No significant deformity or swelling of the joints. PHYSICAL EXAMINATION: VITAL SIGNS: Blood pressure: 129/65; HR: 57; RR: 18; temperature: 97.8; O2 sat: 99% on room air. GENERAL: the patient is alert and oriented to person, time, and place. No acute distress. HEENT: Head is normocephalic and atraumatic. Extraocular movements are intact. NECK: Supple. No JVD. Thyroid gland was not enlarged. LUNGS: Clear to auscultation. No rales, no rhonchi. HEART: Regular rate and rhythm. No murmurs, rubs, or gallops. ABDOMEN: Soft, nontender. Bowel sounds are normal. EXTREMITIES: No edema. No clubbing. NEUROLOGIC: Alert and oriented x3. No focal weakness. ASSESSMENT: 1. Non-ST elevation myocardial infarction 2. History of hypertension. 3. History of hyperlipidemia. 4. Diabetes mellitus type 2. 11/03/2019 The patient was evaluated by cardiology pertaining to titrate up beta-salina dose and possible intervention on Tuesday for coronary angiography. 11/04/2019 Continue current management. The patient was a scheduled for intervention on Tuesday as advised per Cardiology for cardiac angiography. List of medications reviewed. PLAN OF CARE: Serial cardiac enzymes Lovenox Aspirin Glycemic control Blood pressure control. Cardiac angiography on Tuesday Cardiology consultation noted
[2019-11-04] MEDS: ATORVASTATIN 40 MG TAB PO SCH (21:05)
--- NOTE | 2019-11-04 21:05 | NUR ---
PATIENT AOX4, NO SIGNS OF DISTRESS NOTED. PATIENT IS READY FOR SHOWER AND VOICES NO PAIN AT THIS TIME. IMMIGRATION MANAGER IS IN PLACE AND RUNNING AT SINUS RHYTHM AND PATIENT INSTRUCTED TO CALL LIGHT FOR ASSISTANCE. PATIENT VOICED THAT HE IS AWARE OF NPO AFTER MIDNIGHT FOR PROCEDURE IN THE MORNING. BED IS IN LOWEST POSITION, BOTH SIDE RAILS ARE UP, CALL LIGHT IS WITHIN EASY REACH, WILL CONTINUE TO MONITOR.
[2019-11-05] VITALS (7 sets, daily range): BP systolic 129–177; BP diastolic 65–87
[2019-11-05] MEDS: METOPROLOL TARTRATE 25 MG TAB PO SCH ×3 (04:48→20:55)
--- NOTE | 2019-11-05 07:06 | NUR ---
bedside shift report received from PM nurse; pt awake, alert, oriented, no signs of distress. in stable condition. all safety measures in place.
[2019-11-05] MEDS: INSULIN REGULAR, HUMAN 100 UNIT/1 ML 3ML VIAL SQ SCH ×4 (07:30→20:50)
--- NOTE | 2019-11-05 08:36 | NUR ---
PT LEAVING FOR JOB HAND, LEFT IN STABLE CONDITION.
[2019-11-05] MEDS ORDERED: FENTANYL CITRATE/PF 100MCG/2 ML INJ ONE (08:46)
[2019-11-05] MEDS ORDERED: LIDOCAINE HCL 2% LOCAL 20 ML VIAL ONE (08:46)
[2019-11-05] MEDS ORDERED: HEPARIN SOD (PORCINE) 1000 UNIT/ML 30ML ONE (08:46)
[2019-11-05] MEDS ORDERED: MIDAZOLAM HCL 2 MG/2 ML VIAL ONE (08:46)
[2019-11-05] MEDS ORDERED: HEPARIN SOD/SOD CHLORIDE 2,000 ML ONE (08:47)
[2019-11-05] MEDS ORDERED: SODIUM CHLORIDE 0.9% 1000ML 1,000 ML ONE (08:47)
[2019-11-05] MEDS ORDERED: IOPAMIDOL 370 MG/ML 200 ML INFUS..BTL INJ ONE (08:47)
[2019-11-05] MEDS ORDERED: NITROGLYCERIN/D5W 200 MCG/ML 250 ML ONE (08:48)
[2019-11-05] MEDS: ASPIRIN 81 MG ENTERIC COATED PO SCH (08:49)
[2019-11-05] MEDS ORDERED: ASPIRIN 325 MG TAB ONE (09:35)
[2019-11-05] MEDS ORDERED: TICAGRELOR 90 MG TABLET ONE (09:35)
--- NOTE | 2019-11-05 10:12 | NUR ---
11/05/2019 Subjective: Mr. Guerra is a 59-year-old gentleman who is a status post drug-eluting stent placement without complication. The patient is in no acute distress. The patient denies chest pain, nausea, vomiting, fever, chills, shortness of breath, abdominal pain, melena, diarrhea, hematuria, and frequency. Review of systems: Constitutional: No fever no chills HEENT: Denies headache, no ear pain, no nosebleed, no sore throat. Cardiovascular: Denies chest pain, PND, swelling of the legs, palpitations or blackout spells. Respiratory: Denies cough, hemoptysis or shortness of breath. Gastrointestinal: Denies nausea, vomiting, diarrhea, hematemesis or melena. Genitourinary: Denies hematuria, frequency or dysuria. Neurologic: Denies convulsive disorders, no focal weakness, no ataxia. Psych: Denies anxiety or depression Skin: No rash. Hematological system: Denies bleeding, no petechia. Musculoskeletal: No significant deformity or swelling of the joints. PHYSICAL EXAMINATION: VITAL SIGNS: Blood pressure: 165/78; HR: 64; RR: 18; temperature: 97.8; O2 sat: 99% on room air. GENERAL: the patient is alert and oriented to person, time, and place. No acute distress. HEENT: Head is normocephalic and atraumatic. Extraocular movements are intact. NECK: Supple. No JVD. Thyroid gland was not enlarged. LUNGS: Clear to auscultation. No rales, no rhonchi. HEART: Regular rate and rhythm. No murmurs, rubs, or gallops. ABDOMEN: Soft, nontender. Bowel sounds are normal. EXTREMITIES: No edema. No clubbing. NEUROLOGIC: Alert and oriented x3. No focal weakness. ASSESSMENT: 1. Non-ST elevation myocardial infarction 2. History of hypertension. 3. History of hyperlipidemia. 4. Diabetes mellitus type 2. 5. Status post drug-elucting stent placement. 11/03/2019 The patient was evaluated by cardiology pertaining to titrate up beta-salina dose and possible intervention on Tuesday for coronary angiography. 11/04/2019 Continue current management. The patient was a scheduled for intervention on Tuesday as advised per Cardiology for cardiac angiography. List of medications reviewed. 11/05/2019 The patient is status post angiogram and RCA drug-eluting stent placement. Cardiology advised to hold metformin for 48h if considered, placed the patient on high potency statin therapy, Brilinta, IV fluids, and continue beta blockers. PLAN OF CARE: Continue current management. Lovenox Aspirin High potency statin Glycemic control Continue beta blockers IV fluids Blood pressure control. Cardiology consultation noted.
--- NOTE | 2019-11-05 10:16 | NUR ---
REPORT FROM METAL CUTTER RN FOLLOWS: PT HAD RIGHT FEMORAL CATHETERIZATION, USED ANGIOSEAL; SITE WAS OOZING. WANTS 4 HOUR BED REST AND FLUIDS AT 100 ML/HR FOR 6 HOURS. THE RCA WAS BALLOONED AND STENTED. PT RECEIVED 1 MG VERSED 25 MCG FENTANYL, 11,000 HEPARIN; ACT WAS 396 AT 0943. PT ALSO RECEIVED TOTAL OF 180 MG BRILINTA AND 325 MG ASPIRIN. NEW IV TO LEFT HAND 20G STARTED; IV TO RIGHT AC LEFT IN PLACE.
[2019-11-05] MEDS ORDERED: SODIUM CHLORIDE 0.9% 1000ML 1,000 ML IV SCH (10:45)
--- NOTE | 2019-11-05 11:10 | Operative Report ---
DATE OF PROCEDURE: 11/05/2019 SURGEON: Ochoa Gallegos MD PROCEDURES PERFORMED: 1. Left heart catheterization. 2. Selective coronary angiography. 3. RCA drug-eluting stent PCI using 3.5 x 16 Synergy drug-eluting stent, post dilated with a 4.0 x 8 Emerge and then an NC Quantum apex to the distal segment and 4.5 x 8 NC Quantum to the proximal to mid segment of the stent. 4. Right common femoral artery 6-Mont[place]grin Angio-Seal closure. PROCEDURE COMPLICATIONS: None. ESTIMATED BLOOD LOSS: Less than 15 mL. PROCEDURE SUMMARY: After consent was obtained, the patient was prepped and draped in a sterile fashion. The right femoral site was locally infiltrated with 2% lidocaine and access was obtained using micropuncture kit. A 6-[place]gr[place] sheath was placed. The catheters were railed into the proximal ascending aorta. Using a leading J-wire, a JL4 6-[place] catheter was used for engagement of left main. A JR4 6-[place] catheter was used to cross the aortic valve and to engage the right coronary artery. It was then decided to proceed with intervention to the right coronary artery, which was done with a JR4 6-[place] guide catheter without side holes, a Runthrough wire, heparin to maintain an ACT over 250, aspirin 81 mg and Brilinta 180 mg loading. FINDINGS: 1. LV pressure was 154/3 with end-diastolic pressure of 24. 2. Aortic pressure is 148/73. 3. No left ventriculogram was performed. The patient has preserved left ventricular systolic function on recent echocardiogram on this admission. 4. Left main is large in caliber with luminal irregularities gives an LAD and circumflex. 5. The LAD has proximally less than 30% stenosis. It gives a diagonal that has 70% proximal to large stenosis with 1.5 mm in caliber. 6. The mid to distal LAD is diffusely diseased 30% into the apical anterior segment of LV myocardium has a focal area of 50% stenosis, tortuous terminal segment. 7. The circumflex gives 3 obtuse marginals in the proximal segment. It has area of 50% stenosis, however, it is overall mildly diffusely diseased. Circumflex 30% diffuse disease throughout including its branches, obtuse marginal 1, 2 and 3. 8. The right coronary artery is dominant, it has large caliber at the level of mid to distal angulation. There is a focal area of 95% stenosis with BRIONNA-2 flow preprocedure, medium caliber obtuse marginal left posterolateral branches. The right coronary artery feeds segment of apical segment of LV myocardium. It was decided to proceed with the culprit treatment of RCA 95% stenosis. A Runthrough wire was used to cross the area of stenosis and positioned distal to RPLV. Predilatation was performed with 2.0 x 8 Emerge balloon followed by a 3.5 x 16 Synergy drug-eluting stent, post dilated with a 4.0 Emerge balloon 4.0 x 8 to 20 atmospheres and then a 4.0 x 8 NC Quantum to 20 atmospheres and then a 4.5 x 8 NC Quantum to the proximal to mid segment, inflated to 12 atmospheres. Final angiography reveals BRIONNA-3 flow, less than 10% residual stenosis. No flow-limiting dissections. No perforations. BRIONNA-3 flow. CONCLUSION: Drug-eluting stent PCI of the RCA. Recommend aspirin and Brilinta, bed rest 4 hours after 6-Mont[place]grin Angio-Seal closure to the right common femoral artery and IV fluids. MD HOLLIS Ryan/MELIDA /[id number]
--- NOTE | 2019-11-05 11:10 | Progress Note ---
DATE: 11/05/2019 Cardiology Progress Note SUBJECTIVE: Denies any chest pain or shortness of breath. OBJECTIVE: VITAL SIGNS: Temperature 97.8, heart rate 69, blood pressure 130/85, respiratory rate 20, and O2 saturation 98%. GENERAL: In no acute distress. Alert. NECK: No JVD. CHEST: Clear to auscultation. CARDIOVASCULAR: Regular rate and rhythm. Normal S1 and S2. No S3. No S4. No murmurs. No rubs. ABDOMEN: Soft and nontender. Bowel sounds positive. EXTREMITIES: No edema. CARDIOVASCULAR MEDICATIONS: Reviewed. Atorvastatin 80 mg at bedtime, metoprolol tartrate 25 mg every 8 hours, aspirin 81 mg daily, and Brilinta 90 mg every 12 hours. STUDIES: Reviewed. Sodium 139, potassium 4.1, chloride 108, bicarbonate 22, BUN 31, creatinine 1.15, and glucose 167. White blood cells 13.9 and platelets 236. PT 13.6, PTT 32.8, and INR 0.98. AST 22, ALT 33, and alkaline phosphatase 79. ASSESSMENT AND PLAN: 1. A 59-year-old man presents with [id number] myocardial infarction, underwent RCA drug-eluting stent PCI today. Has residual small caliber vessel diagonal severe disease and mild residual diffuse disease of LAD and circumflex. 2. Hypertension, diabetes, and dyslipidemia. RECOMMEND: 1. Continue current cardiovascular medications including aspirin and Brilinta for at least one year. Brilinta and aspirin lifelong following drug-eluting stent PCI. 2. Continue high potency statin therapy. 3. Continue beta-salina. Can transition to succinate or extended-release formulation 50 mg tablets 1/2 daily upon discharge. 4. Would favor use of SGLT2 inhibitors for diabetes optimization upon discharge. If metformin also being considered, would hold for 48 hours post angiogram given administered dye. 5. Bed rest to 4 hours post angiogram today. IV fluids. Anticipate possible discharge tomorrow. The patient has preserved left ventricular systolic function on echocardiogram. MD HOLLIS Ryan/MELIDA /[id number]
--- NOTE | 2019-11-05 20:30 | NUR ---
DISCONTINUED IV TO R AC. CATHETER INTACT. TOLERATED WELL. NO ADVERSE SIGNS.
[2019-11-05] MEDS: ATORVASTATIN 40 MG TAB PO SCH (20:50)
[2019-11-05] MEDS: TICAGRELOR 90 MG TABLET PO SCH (20:50)
[2019-11-06] VITALS: BP 144/70
[2019-11-06 04:00] VITALS: BP 145/80
[2019-11-06] MEDS: METOPROLOL TARTRATE 25 MG TAB PO SCH (06:00)
[2019-11-06 06:18] LABS: BASOPHILS # (AUTO) 0.1 (0.0-0.1); BASOPHILS % 0.5 % (0.0-1.0); EOSINOPHILS # (AUTO) 0.3 (0.0-0.4); EOSINOPHILS % 3.2 % (0.0-6.0); HEMATOCRIT 43.2 % (38.2-49.6); HEMOGLOBIN 14.8 g/dL (14.0-18.0); LYMPHOCYTES # (AUTO) 2.7 (1.0-3.2); LYMPHOCYTES % 25.2 % (18.0-39.1); MEAN CORPUSCULAR HEMOGLOBIN 30.8 pg (28-32); MEAN CORPUSCULAR HGB CONC 34.3 g/dL (31-35); MEAN CORPUSCULAR VOLUME 89.8 fL (81-99); MONOCYTES # (AUTO) 0.8 (0.2-0.8); MONOCYTES % 7.7 % (4.4-11.3); NEUTROPHILS # (AUTO) 6.7 (2.1-6.9); NEUTROPHILS % 62.2 % (38.7-80.0); PLATELET COUNT 185 x10e3/uL (140-360); RED BLOOD COUNT 4.81 x10e6/uL (4.3-5.7)
[2019-11-06 06:41] LABS: ANION GAP 11.9 mmol/L (8-16); BLOOD UREA NITROGEN 18 mg/dL (7-26); BUN/CREATININE RATIO 17 (6-25); CALCIUM 8.9 mg/dL (8.4-10.2); CARBON DIOXIDE 22 mmol/L (22-29); CHLORIDE 107 mmol/L (98-107); CREATININE, SERUM 1.04 mg/dL (0.72-1.25); EST GLOMERULAR FILTRATION RATE > 60 ML/MIN (60-); GLUCOSE 143 mg/dL (74-118); POTASSIUM 3.9 mmol/L (3.5-5.1); SODIUM 137 mmol/L (136-145)
--- NOTE | 2019-11-06 07:11 | NUR ---
received bedside shift report from PM nurse; pt in stable condition.
--- NOTE | 2019-11-06 07:12 | NUR ---
REPORT GIVEN TO DAYSMOFT NURSE. RESTING ON BEDSIDE. AAOX3. NO ADVERSE SIGNS. NO SIGNS OF INFILTRATION TO IV. SR UPX2. BED LOCKED AND IN LOW POSITION. CALL LIGHT WITHIN REACH.
[2019-11-06 07:48] VITALS: BP 147/84
[2019-11-06 08:00] VITALS: BP 139/73
[2019-11-06] MEDS: TICAGRELOR 90 MG TABLET PO SCH (08:00)
[2019-11-06] MEDS: ASPIRIN 81 MG ENTERIC COATED PO SCH (08:00)
[2019-11-06] MEDS: INSULIN REGULAR, HUMAN 100 UNIT/1 ML 3ML VIAL SQ SCH (08:20)
--- NOTE | 2019-11-06 09:30 | NUR ---
Final diagnosis: Non-STEMI Coronary artery disease Status-post RCA drug-eluting stent placement Hypertension Diabetes mellitus type 2 Hyperlipidemia Hospital course: 51 a-year-old male patient admitted under my service on 11/01/2019 and discharged on 11/06/2019. The patient was treated for the above conditions. The patient was place on beta-blockers, statins, IV fluids, coronary angiography, Lovenox, aspirin, serial cardiac enzymes, and telemetry. The patient was evaluated by cardiology pertaining the patient the patient needed coronary angiography and intervention, which was performed placing a drug-eluting stent. Chest x-ray on 11/01/2019 reported no acute cardiopulmonary disease. Echocardiogram on 11/02/2019 reported mild concentric left ventricular hypertrophy, normal systolic function, ejection fraction between 55 to 60%, aguirre tolic filling pattern normal. The left atrium was moderately dilated. There was mild to moderate aortic regurgitation. Mild mitral regurgitation present. Trace tricuspid regurgitation. Trace/mild pulmonic regurgitation. Diet: Diabetic diet. Activities: As tolerated. Condition at the time of discharge: stable. Medications: Per reconciliation list Disposition: Follow-up with Dr. Lokesh King, motor winder and Dr. Smith, PCP.
[2019-11-06 12:00] VITALS: BP 150/88
--- NOTE | 2019-11-06 13:05 | Progress Note ---
DATE: 11/06/2019 SUBJECTIVE: Denies chest pain or shortness of breath, recovered well post PCI. OBJECTIVE: VITAL SIGNS: Temperature 97.6, heart rate 52, respiratory rate 20, blood pressure 139/73, and O2 saturation 100%. BMI of 32. GENERAL: No acute distress. Alert. NECK: No JVD. CHEST: Clear to auscultation. CARDIOVASCULAR: Regular rate and rhythm. Normal S1 and S2. No S3. No S4. No murmurs or rubs. ABDOMEN: Soft and nontender. Bowel sounds positive. EXTREMITIES: No cyanosis, clubbing, or edema. CARDIOVASCULAR MEDICATIONS: Reviewed. Atorvastatin 80 mg at bedtime, metoprolol tartrate 25 mg every 8 hours, aspirin 81 mg daily, and ticagrelor 90 mg every 12 hours. STUDIES: Reviewed. Sodium 137, potassium 3.9, chloride 107, bicarbonate 22, BUN 18, creatinine 1.04, and glucose 143. White blood cells 10.7, hemoglobin 14.8, and platelets 185. PT 13.6, PTT 32.8, and INR 0.98. AST 22, ALT 33, alkaline phosphatase 79, and total bilirubin 0.5. ASSESSMENT AND PLAN: A 59-year-old man with hypertension, dyslipidemia, coronary artery disease, status post RCA drug-eluting stent PCI with residual small caliber diagonal severe disease and otherwise mild predominantly diffuse disease of other vessels, morbid obesity. RECOMMEND: Continue current cardiovascular medications, particularly aspirin and Brilinta status post PCI. Continue metoprolol and atorvastatin. Outpatient followup advised in 4 weeks. MD HOLLIS Ryan/MELIDA /[id number]
[2019-11-06] MEDS ORDERED: BRILINTA90 MG PO (14:08)
== END 2019-11-06 14:27 | disposition home or self-care (01) | DRG 247 ==
LOC: ER 13:51 → ERHOLD 14:04 → MED/SURG 15:40 → OBSVTOIN 11-02 14:26
PROVIDERS: ADMIT Internal Medicine; ATTEND Internal Medicine
PROC: 027034Z Dilation of Coronary Artery, One Artery with Drug-eluting Intraluminal Device, Percutaneous Approach (ICD-10-PCS; principal; 2019-11-05)
PROC: 4A023N7 Measurement of Cardiac Sampling and Pressure, Left Heart, Percutaneous Approach (ICD-10-PCS; 2019-11-05)
PROC: B2111ZZ Fluoroscopy of Multiple Coronary Arteries using Low Osmolar Contrast (ICD-10-PCS; 2019-11-05)
PROC: B3101ZZ Fluoroscopy of Thoracic Aorta using Low Osmolar Contrast (ICD-10-PCS; 2019-11-05)
DX: I21.4 Non-ST elevation (NSTEMI) myocardial infarction (principal); I25.110 Atherosclerotic heart disease of native coronary artery with unstable angina pectoris; E78.5 Hyperlipidemia, unspecified; E11.9 Type 2 diabetes mellitus without complications; I11.9 Hypertensive heart disease without heart failure; E66.01 Morbid (severe) obesity due to excess calories; Z68.32 Body mass index [BMI] 32.0-32.9, adult
CPT/HCPCS: 36415; 71045; 80048; 80053; 80061; 82550; 82553; 82948; 83036; 83690; 84484; 85025; 85610; 85730; 87635; 92925; 92928; 93005; 93306; 99152; 99153; 99284; C1725; C1760; C1874; G0378; J1644; J1650; J1817; J2001; J2250; J3010; J7030; Q9967

== ENCOUNTER 2020-11-25 08:28 | Emergency (ER) | payer OTHER ==
[~2020-11-25] VITALS: Ht 182.9 cm; Wt 107.5 kg
[~2020-11-25 08:28] MED LIST changes: +BRILINTA90 MG PO
[2020-11-25] MEDS ORDERED: ONDANSETRON HCL INJ 2MG/ML 2ML 2 MG/ML VIAL IV STA (08:42)
[2020-11-25] MEDS ORDERED: MECLIZINE HCL 12.5 MG TAB PO ONE (08:45)
[2020-11-25 08:49] LABS: BASOPHILS # (AUTO) 0.1 (0.0-0.1); BASOPHILS % 0.8 % (0.0-1.0); EOSINOPHILS # (AUTO) 0.5 (0.0-0.4); HEMATOCRIT 40.7 % (38.2-49.6); HEMOGLOBIN 13.6 g/dL (14.0-18.0); LYMPHOCYTES # (AUTO) 2.5 (1.0-3.2); LYMPHOCYTES % 21.7 % (18.0-39.1); MEAN CORPUSCULAR HEMOGLOBIN 29.1 pg (28-32); MEAN CORPUSCULAR HGB CONC 33.4 g/dL (31-35); MONOCYTES # (AUTO) 0.9 (0.2-0.8); MONOCYTES % 7.5 % (4.4-11.3); NEUTROPHILS # (AUTO) 7.3 (2.1-6.9); NEUTROPHILS % 64.2 % (38.7-80.0); PLATELET COUNT 240 x10e3/uL (140-360); RED BLOOD COUNT 4.68 x10e6/uL (4.3-5.7); RED CELL DISTRIBUTION WIDTH 14.2 % (11.7-14.4)
[2020-11-25 09:12] LABS: ALANINE AMINOTRANSFERASE 20 IU/L (0-55); ALBUMIN 3.6 g/dL (3.5-5.0); ALBUMIN/GLOBULIN RATIO 1.1 (0.8-2.0); ALKALINE PHOSPHATASE 110 IU/L (40-150); ANION GAP 12.1 mmol/L (8-16); BLOOD UREA NITROGEN 20 mg/dL (7-26); BUN/CREATININE RATIO 20 (6-25); CALCIUM 8.9 mg/dL (8.4-10.2); CARBON DIOXIDE 22 mmol/L (22-29); CHLORIDE 108 mmol/L (98-107); CREATINE KINASE 217 IU/L (30-200); CREATININE, SERUM 0.99 mg/dL (0.72-1.25); EST GLOMERULAR FILTRATION RATE > 60 ML/MIN (60-); GLUCOSE 201 mg/dL (74-118); POTASSIUM 4.1 mmol/L (3.5-5.1); SODIUM 138 mmol/L (136-145)
[2020-11-25] MEDS ORDERED: SODIUM CHLORIDE 0.9% 100 ML ONE (09:36)
[2020-11-25] MEDS ORDERED: IOPAMIDOL 370 MG/ML 200 ML INFUS..BTL INJ ONE (09:36)
[2020-11-25] MEDS ORDERED: MECLIZINE HCL12.5 MG PO (11:17)
== END 2020-11-25 11:46 | disposition home or self-care (01) ==
LOC: ER 11:24
DX: R42 Dizziness and giddiness (principal); E11.65 Type 2 diabetes mellitus with hyperglycemia; I10 Essential (primary) hypertension; E78.5 Hyperlipidemia, unspecified
CPT/HCPCS: 36415; 70450; 70496; 70498; 71045; 80053; 82550; 82553; 83880; 84484; 85025; 93005; 99284; J2405; J7050; J8597; Q9967

== ENCOUNTER 2021-11-03 09:58 | Emergency (ER) | payer OTHER ==
[~2021-11-03] VITALS: Ht 182.9 cm; Wt 107.5 kg
[~2021-11-03 09:58] MED LIST changes: +MECLIZINE HCL12.5 MG PO
[2021-11-03] MEDS ORDERED: ONDANSETRON HCL INJ 2MG/ML 2ML 2 MG/ML VIAL IV STA (10:19)
[2021-11-03] MEDS ORDERED: KETOROLAC TROMETHAMINE 30 MG/ML VIAL IV STA (10:19)
[2021-11-03] MEDS ORDERED: LACTATED RINGER'S 1,000 ML INJ STA (10:19)
[2021-11-03] MEDS ORDERED: Morphine 4mg Syringe 4 MG/ML INJ IV ONE (10:30)
[2021-11-03 11:01] LABS: BASOPHILS # (AUTO) 0.1 (0.0-0.1); BASOPHILS % 0.7 % (0.0-1.0); EOSINOPHILS # (AUTO) 0.4 (0.0-0.4); EOSINOPHILS % 3.3 % (0.0-6.0); HEMATOCRIT 50.2 % (38.2-49.6); HEMOGLOBIN 16.8 g/dL (14.0-18.0); LYMPHOCYTES # (AUTO) 2.3 (1.0-3.2); LYMPHOCYTES % 18.3 % (18.0-39.1); MEAN CORPUSCULAR HEMOGLOBIN 28.7 pg (28-32); MEAN CORPUSCULAR HGB CONC 33.5 g/dL (31-35); MEAN CORPUSCULAR VOLUME 85.8 fL (81-99); MONOCYTES # (AUTO) 0.8 (0.2-0.8); MONOCYTES % 6.5 % (4.4-11.3); NEUTROPHILS # (AUTO) 8.9 (2.1-6.9); NEUTROPHILS % 70.5 % (38.7-80.0); PLATELET COUNT 248 x10e3/uL (140-360); RED BLOOD COUNT 5.85 x10e6/uL (4.3-5.7); RED CELL DISTRIBUTION WIDTH 14.9 % (11.7-14.4)
[2021-11-03 11:05] LABS: CLARITY,URINE SL CLOUDY (CLEAR); COLOR,URINE YELLOW (YELLOW); KETONES,URINE NEGATIVE (NEGATIVE); LEUKOCYTE ESTERASE ,URINE NEGATIVE (NEGATIVE); NITRITE,URINE NEGATIVE (NEGATIVE); PROTEIN,URINE DIPSTICK 2+ (NEGATIVE); URINE UROBILINOGEN 0.2 mg/dL (0.2 - 1)
[2021-11-03 11:25] LABS: ALBUMIN 3.6 g/dL (3.5-5.0); ANION GAP 12.6 mmol/L (8-16); CALCIUM 9.1 mg/dL (8.4-10.2); CREATININE, SERUM 1.3 mg/dL (0.72-1.25); POTASSIUM 4.6 mmol/L (3.5-5.1)
[2021-11-03 11:29] LABS: BACTERIA,URINE FEW /HPF; EPITHELIAL CELLS,URINE RARE /LPF; RBC,URINE 0-5 /HPF (0-5); WBC,URINE (MAN) 0-5 /HPF (0-5)
[2021-11-03] MEDS ORDERED: IBUPROFEN600 MG PO (11:45)
[2021-11-03] MEDS ORDERED: CYCLOBENZAPRINE10 MG PO (11:45)
== END 2021-11-03 11:55 | disposition home or self-care (01) ==
LOC: ER 10:15
DX: M54.50 Low back pain, unspecified (principal); N20.0 Calculus of kidney; R10.9 Unspecified abdominal pain; E11.65 Type 2 diabetes mellitus with hyperglycemia; I10 Essential (primary) hypertension; E78.5 Hyperlipidemia, unspecified
CPT/HCPCS: 36415; 74176; 80053; 81001; 85025; 99284; J1885; J2270; J2405; J7121

== ENCOUNTER → 2024-08-10 | Day surgery (SDC) | payer OTHER ==
[2024-08-03 14:34] LABS: BASOPHILS # (AUTO) 0.1 (0.0-0.1); BASOPHILS % 0.5 % (0.0-1.0); EOSINOPHILS # (AUTO) 0.6 (0.0-0.4); EOSINOPHILS % 5.3 % (0.0-6.0); HEMOGLOBIN 14.8 g/dL (14.0-18.0); LYMPHOCYTES # (AUTO) 2.4 (1.0-3.2); LYMPHOCYTES % 21.6 % (18.0-39.1); MEAN CORPUSCULAR HEMOGLOBIN 30.8 pg (28-32); MEAN CORPUSCULAR HGB CONC 34.4 g/dL (31-35); MEAN CORPUSCULAR VOLUME 89.6 fL (81-99); MONOCYTES # (AUTO) 0.9 (0.2-0.8); MONOCYTES % 7.7 % (4.4-11.3); NEUTROPHILS # (AUTO) 7.1 (2.1-6.9); NEUTROPHILS % 64.4 % (38.7-80.0); PLATELET COUNT 223 x10e3/uL (140-360); RED CELL DISTRIBUTION WIDTH 12.9 % (11.7-14.4); WHITE BLOOD COUNT 11.04 x10e3/uL (4.8-10.8)
[~2024-08-10] MED LIST changes: +ASPIRIN EC81 MG PO; +BILBERRY PO; +BLACK SEED OIL PO; +CINNAMON PO; +CYCLOBENZAPRINE10 MG PO; +FENTANYL CITRATE/PF 100MCG/2 ML INJ ONE; +GRAPE SEED PO; +IBUPROFEN600 MG PO; +LIDOCAINE HCL 2% LOCAL INJ 5 ML SDV VIAL INJ ONE; +MIDAZOLAM HCL 2 MG/2 ML VIAL ONE; +PROPOFOL IV EMULSION 10 MG/ML 20 ML VIAL ONE; +TRIAMTERENE-HCTZ1 EA PO; +ZETIA10 MG PO
[2024-08-10] MEDS: LACTATED RINGER'S 1,000 ML ONE (17:10)
[2024-08-10 17:55] VITALS: BP 130/85; PULSE 74; RESP 16; TEMP 97.4; O2SAT 97
== END | disposition home or self-care (01) ==
LOC: OR 15:57
PROVIDERS: ATTEND Internal Medicine Gastroenterology
DX: Z12.11 Encounter for screening for malignant neoplasm of colon (principal); D12.2 Benign neoplasm of ascending colon; D12.3 Benign neoplasm of transverse colon; Q27.33 Arteriovenous malformation of digestive system vessel; K64.8 Other hemorrhoids; I10 Essential (primary) hypertension; E11.9 Type 2 diabetes mellitus without complications; F17.200 Nicotine dependence, unspecified, uncomplicated; Z01.810 Encounter for preprocedural cardiovascular examination; Z01.812 Encounter for preprocedural laboratory examination; Z79.82 Long term (current) use of aspirin; Z79.84 Long term (current) use of oral hypoglycemic drugs; Z79.899 Other long term (current) drug therapy
CPT/HCPCS: 36415; 45384; 45385; 85025; 93005; J2003; J2250; J2704; J7121